=== PATIENT | male | born 1970 | race Caucasian/White ===

== ENCOUNTER → 2022-02-18 08:48 | Outpatient (BNVA) | payer MEDICAID, SELFPAY | PROVIDERS: Visit Provider Podiatrist Foot & Ankle Surgery | DX: M72.2 Plantar fascial fibromatosis (principal); M21.621 Bunionette of right foot | CPT/HCPCS: 73630 ==

== ENCOUNTER → 2025-04-15 16:09 | Outpatient (BNVA) | payer MEDICAID, SELFPAY | PROVIDERS: PCP Family Medicine; Visit Provider Emergency Medicine | DX: J02.9 Acute pharyngitis, unspecified (principal); J02.0 Streptococcal pharyngitis | CPT/HCPCS: 87071 ==